=== PATIENT | male | born 1955 | race Caucasian/White ===

== ENCOUNTER → 2024-07-01 08:58 | Outpatient (REF) | payer MEDICARE, SELFPAY ==
[2024-07-01 11:05] LABS: Hematocrit 43.7 % (39.0-52.0); Hemoglobin 15.2 g/dL (13.0-18.0); Mean Corp Hgb Conc. 34.8 g/dL (33.0-37.0); Mean Corpuscular Hgb 29.5 pg (27.0-31.0); Mean Corpuscular Volume 84.9 fL (80.0-94.0); Mean Platelet Volume 11.2 fL (7.4-10.4); Platelet Count 174 10^3/uL (130-400); Red Blood Cell Count 5.15 10^6/uL (4.70-6.10); Red Cell Dist. Width 12.4 % (11.5-14.5); White Blood Cell Count 5.7 10^3/uL (4.8-10.8)
[2024-07-01 11:29] LABS: Blood Urea Nitrogen 15 mg/dl (9-20); Calcium 9.5 mg/dl (8.4-10.2); Carbon Dioxide 30 mmol/L (22-30); Chloride 100 mmol/L (98-107); Glucose 82 mg/dl (70-99); Potassium 3.7 mmol/L (3.5-5.1); Sodium 143 mmol/L (135-145); eGFR > 60.00
== END ==
LOC: SDSPAT 08:58
PROVIDERS: ATTENDING PHYSICIAN Surgery; FAMILY PHYSICIAN Family Medicine; OTHER PHYSICIAN Internal Medicine Cardiovascular Disease
DX: Z01.818 Encounter for other preprocedural examination (principal)
CPT/HCPCS: 36415; 80048; 85027; 93005

== ENCOUNTER → 2024-10-13 09:47 | Outpatient (REF) | payer MEDICARE, SELFPAY | LOC: HWRAD 09:47 | PROVIDERS: ATTENDING PHYSICIAN Internal Medicine Gastroenterology; FAMILY PHYSICIAN Family Medicine | DX: K82.4 Cholesterolosis of gallbladder (principal) | CPT/HCPCS: 76700 ==

== ENCOUNTER 2024-11-28 06:14 | Day surgery (SDC) | payer MEDICARE, SELFPAY | END 2024-11-28 09:31 | disposition home or self-care (01) | LOC: GI 06:14 | PROVIDERS: ATTENDING PHYSICIAN Internal Medicine Gastroenterology | DX: R12 Heartburn (principal); K44.9 Diaphragmatic hernia without obstruction or gangrene; K22.89 Other specified disease of esophagus; K31.7 Polyp of stomach and duodenum; K31.89 Other diseases of stomach and duodenum; Z13.810 Encounter for screening for upper gastrointestinal disorder | CPT/HCPCS: 43239; 88305; 88342 ==

== ENCOUNTER → 2025-01-08 09:01 | Outpatient (REF) | payer MEDICARE, SELFPAY ==
[2025-01-08 10:35] LABS: Hematocrit 44.7 % (39.0-52.0); Hemoglobin 15.4 g/dL (13.0-18.0); Mean Corp Hgb Conc. 34.5 g/dL (33.0-37.0); Mean Platelet Volume 12.3 fL (7.4-10.4); Platelet Count 160 10^3/uL (130-400); Red Blood Cell Count 5.14 10^6/uL (4.70-6.10); Red Cell Dist. Width 12.4 % (11.5-14.5); White Blood Cell Count 4.6 10^3/uL (4.8-10.8)
[2025-01-08 11:04] LABS: Blood Urea Nitrogen 12 mg/dl (9-20); Calcium 9.6 mg/dl (8.4-10.2); Carbon Dioxide 29 mmol/L (22-30); Chloride 104 mmol/L (98-107); Glucose 89 mg/dl (70-99); Sodium 141 mmol/L (135-145); eGFR > 60.00
== END ==
LOC: SDSPAT 09:01
PROVIDERS: ATTENDING PHYSICIAN Surgery; FAMILY PHYSICIAN Family Medicine
DX: Z01.818 Encounter for other preprocedural examination (principal)
CPT/HCPCS: 36415; 80048; 85027; 93005

== ENCOUNTER 2025-01-20 11:11 | Emergency (ER) | payer MEDICARE, SELFPAY ==
[2025-01-20 11:35] VITALS: BP 117/83
[2025-01-20 12:07] LABS: % Basophils 0.4 % (0-2); % Immature Granulocytes 0.2 % (0-0.5); % Lymphocytes 9.8 % (20.5-51.1); % Monocytes 8.4 % (1.7-9.3); % Neutrophils 81.2 % (42.2-75.2); Absolute Lymphocytes 0.5 10^3/uL (1.2-3.4); Absolute Monocytes 0.4 10^3/uL (0.1-0.6); Hematocrit 47.5 % (39.0-52.0); Hemoglobin 16.3 g/dL (13.0-18.0); Mean Corp Hgb Conc. 34.3 g/dL (33.0-37.0); Mean Corpuscular Hgb 30.1 pg (27.0-31.0); Mean Corpuscular Volume 87.8 fL (80.0-94.0); Mean Platelet Volume 11.3 fL (7.4-10.4); Nucleated Red Blood Cells % 0 % (-); Platelet Count 172 10^3/uL (130-400); Red Blood Cell Count 5.41 10^6/uL (4.70-6.10); Red Cell Dist. Width 12.5 % (11.5-14.5); White Blood Cell Count 4.9 10^3/uL (4.8-10.8)
[2025-01-20 12:21] LABS: ALT (SGPT) 20 U/L (0-50); AST (SGOT) 21 U/L (17-59); Albumin 4.6 g/dl (3.5-5.0); Alkaline Phosphatase 66 U/L (38-126); Blood Urea Nitrogen 13 mg/dl (9-20); Calcium 10.1 mg/dl (8.4-10.2); Carbon Dioxide 30 mmol/L (22-30); Chloride 103 mmol/L (98-107); Glucose 127 mg/dl (70-99); Lipase 59 U/L (23-300); Potassium 4.3 mmol/L (3.5-5.1); Sodium 139 mmol/L (135-145); Total Bilirubin 0.5 mg/dl (0.2-1.3); Total Protein 6.9 g/dl (6.3-8.2); eGFR > 60.00
[2025-01-20 13:40] VITALS: BP 117/85
[2025-01-20 13:41] VITALS: BMI 23.0
[2025-01-20 14:00] VITALS: BP 115/77
[2025-01-20 15:37] VITALS: BP 133/80
[2025-01-20 16:00] VITALS: BP 126/78
[2025-01-20] MEDS: ZOFRAN 4 MG IV (16:01)
[2025-01-20] MEDS: MORPHINE SULFATE 4 MG IV (16:05)
[2025-01-20 16:27] LABS: Urine Albumin Negative (Neg - Trace); Urine Bilirubin Negative (Negative); Urine Character Clear (Clear); Urine Color Yellow; Urine Glucose Negative (Negative); Urine Ketone Negative (Negative); Urine Leukocyte Negative (Negative); Urine Nitrite Negative (Negative); Urine Occult Blood Negative (Negative); Urine Urobilinogen Negative (Neg - 1+)
--- NOTE | 2025-01-20 17:49 | ED.GENMED ---
History of Present Illness
General
Chief Complaint: Abdominal Pain
Source: patient
Exam Limitations: none
Time Seen by Provider: 01/20/25 14:07
Nursing documentation reviewed up to this point in time: agreed with
History of Present Illness
History of Present Illness:
69-year-old male with past medical history of GERD, hyperlipidemia presenting to the emergency department today with concerns of lower abdominal pain starting 2 days ago with associated loose bowel movements. Some radiation to the back. Did start
a new medication for reflux a few weeks ago and has had some abdominal symptoms throughout that time period.
Past History
Past History
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
ED Past Surgical History: Other (Radical neck dissection)
Social History
Tobacco: Non-smoker
Review of Systems
Review of Systems
Allergies reviewed?: Yes
All Other Systems: ROS reviewed and negative except as documented in HPI and ROS
Phy Exam
Physical Exam
Physical Exam:
GENERAL: Alert , in no apparent distress
EYE: pupils equal and reactive
NECK: Supple, no significant adenopathy.
ENT: o/p clr, mmm.
CARDIAC: Regular rate and rhythm .
LUNGS: Clear breath sounds bilaterally, no acute respiratory distress, no wheezes/rales/rhonchi
ABDOMEN: Vague minimal discomfort throughout the lower abdomen otherwise soft, , no r/g, no cvat
NEUROLOGICAL: Alert and oriented, no focal neuro deficits
SKIN: Warm and dry, skin intact.
MUSCULOSKELETAL: No edema, well perfused.
PSYCH: Normal and appropriate interaction.
Course
Orders/Labs/Results
Orders:
Orders
01/20/25 11:49
Complete Blood Count/With Diff Urgent
Comprehensive Metabolic Panel Urgent
Lipase Urgent
01/20/25 15:39
Morphine Sulfate 4 mg IV NOW STA
01/20/25 15:57
Ondansetron Injectable [Zofran] 4 mg .ROUTE .STK-MED ONE
01/20/25 15:59
CT Abd/Pel (IV only)-DH only Urgent
Comment:
Reason For Exam: lower abd pain
01/20/25 16:01
Ondansetron Injectable [Zofran] 4 mg IV NOW STA
01/20/25 16:13
Urinalysis Reflex To Culture Urgent
Date Specimen was Collected: 01/20/25
Time Specimen was Collected: 16:12
Abnormal Lab Results
01/20/25
11:49
MPV 11.3 H fL
(7.4-10.4)
Absolute Lymphs (auto) 0.5 L 10^3/uL
(1.2-3.4)
Neutrophils % 81.2 H %
(42.2-75.2)
Lymphocytes % 9.8 L %
(20.5-51.1)
Glucose 127 H mg/dl
(70-99)
01/20/25 11:49
01/20/25 11:49
Vital Signs
Initial and Last Documented VS:
Initial Vital Signs
Temp Pulse Resp BP Pulse Ox
98.3 F 95 18 117/83 99
01/20/25 11:35 01/20/25 11:35 01/20/25 11:35 01/20/25 11:35 01/20/25 11:35
Last Documented Vital Signs
Temp Pulse Resp BP Pulse Ox
98.3 F 69 16 126/78 99
01/20/25 11:35 01/20/25 17:30 01/20/25 17:30 01/20/25 16:00 01/20/25 17:30
MDM/Problems Addressed
MDM/Problems Addressed:
69-year-old male presenting to the emergency department today with concerns of lower abdominal pain over the past 2 days described as intermittent achy with some diarrhea. On arrival vital signs normal patient no distress labs unremarkable CT scan
without emergent findings advised for close outpatient follow-up. Return precautions given.
*Critical Care Note
Total Time (30-74mins, 75-104mins- exclusive of procedures): Not Applicable
ED Attending Note
-
Portions of this chart may have been created with voice recognition software.� Occasional wrong word or��sound alike� substitutions may have occurred due to the inherent limitations of voice recognition software.
Discharge Plan
Departure
Patient Disposition: Home (Routine Discharge)
Date of Disposition: 01/20/25
Time of Disposition: 17:51
Patient with high blood pressure during this ER visit?: No
Condition: Good
Covid-19: Not Applicable
Discharge Problem:
Abdominal pain
Instructions: Abdominal Pain
Prescriptions:
New
ondansetron 4 mg tablet,disintegrating
4 mg PO Q6H PRN (Reason: nausea and vomiting) Qty: 7 0RF
No Action
cyanocobalamin (vitamin B-12) [Vitamin B-12] 1,000 mcg Tablet
1,000 mcg PO DAILY
lorazepam 1 mg Tablet
0.5 mg PO BID
oxycodone 5 mg Tablet
7.5 mg PO QPM
rosuvastatin [Crestor] 5 mg Tablet
5 mg PO QPM
cholecalciferol (vitamin D3) [Vitamin D3] 50 mcg (2,000 unit) Capsule
50 mcg PO DAILY
Gaviscon Extra Strength 254-237.5 mg/5 mL Suspension
10 ml PO QID PRN (Reason: gerd)
azelastine 137 mcg (0.1 %) [place],Non-Aerosol
1 spray INTRANASAL QPM
fluticasone propionate [Flonase] 50 mcg/actuation [place],Suspension
1 spray INTRANASAL BID
vonoprazan 20 mg Tablet
20 mg PO DAILY
Referrals:
Jj Maguire MD [Family Provider] -
Activity Restrictions/Additional Instructions:
You came to the emergency department today with concerns of lower abdominal pain. Here you had a reassuring assessment without emergent findings on CT scan you did have a somewhat enlarged prostate on the CT please follow-up for this. You also had
some joint inflammation at the sacroiliac joint. Please follow-up for this as well. Otherwise return for any worsening, new or concerning symptoms.
Interventions
Interventions:
*Risk Screen - Suicide Last Done: 01/20/25 11:35
*General Assessment Last Done: 01/20/25 11:35
*Neglect/Abuse Screening Last Done: 01/20/25 11:35
*ED- Fall Risk Assessment Last Done: 01/20/25 13:42
*ED COVID-19 Vaccine History Last Done: 01/20/25 13:42
*Nursing Disposition Last Done: 01/20/25 18:12
EH-Pgpqfw-Hkndslbbgo Assessment Last Done: 01/20/25 13:45
Discharge Date and Time
Discharge Date/Time: 01/20/25 18:15
Print Language: OCCITAN
== END 2025-01-20 18:15 | disposition home or self-care (01) ==
LOC: EMR 11:11
PROVIDERS: Emergency Medicine; Physician Assistant; EMERGENCY PHYSICIAN Student in an Organized Health Care Education/Training Program; FAMILY PHYSICIAN Family Medicine
DX: R10.30 Lower abdominal pain, unspecified (principal); E78.5 Hyperlipidemia, unspecified; K21.9 Gastro-esophageal reflux disease without esophagitis
CPT/HCPCS: 99285; 96374; 96375; 74177; 80053; 81003; 83690; 85025; Q9967

== ENCOUNTER 2025-01-25 15:14 | Emergency (ER) | payer MEDICARE, SELFPAY ==
[2025-01-25 15:22] VITALS: BP 111/80
[2025-01-25 15:46] LABS: % Basophils 0.8 % (0-2); % Eosinophils 0.3 % (0-6); % Immature Granulocytes 0.3 % (0-0.5); % Lymphocytes 15.4 % (20.5-51.1); % Monocytes 8.9 % (1.7-9.3); % Neutrophils 74.3 % (42.2-75.2); Absolute Lymphocytes 0.6 10^3/uL (1.2-3.4); Absolute Monocytes 0.3 10^3/uL (0.1-0.6); Absolute Neutrophils 2.9 10^3/uL (1.4-6.5); Hemoglobin 15.8 g/dL (13.0-18.0); Mean Corp Hgb Conc. 34.3 g/dL (33.0-37.0); Mean Corpuscular Hgb 30.3 pg (27.0-31.0); Mean Corpuscular Volume 88.1 fL (80.0-94.0); Mean Platelet Volume 11.5 fL (7.4-10.4); Nucleated Red Blood Cells % 0 % (-); Platelet Count 183 10^3/uL (130-400); Red Blood Cell Count 5.22 10^6/uL (4.70-6.10); Red Cell Dist. Width 12.5 % (11.5-14.5); White Blood Cell Count 3.8 10^3/uL (4.8-10.8)
[2025-01-25 15:57] LABS: ALT (SGPT) 20 U/L (0-50); AST (SGOT) 21 U/L (17-59); Albumin 4.7 g/dl (3.5-5.0); Alkaline Phosphatase 66 U/L (38-126); Blood Urea Nitrogen 13 mg/dl (9-20); Carbon Dioxide 31 mmol/L (22-30); Chloride 103 mmol/L (98-107); Glucose 97 mg/dl (70-99); Lipase 69 U/L (23-300); Potassium 4.5 mmol/L (3.5-5.1); Sodium 138 mmol/L (135-145); Total Bilirubin 0.6 mg/dl (0.2-1.3); Total Protein 7.1 g/dl (6.3-8.2); eGFR > 60.00
--- NOTE | 2025-01-25 16:48 | ED.GENMED ---
History of Present Illness
General
Chief Complaint: Abdominal Pain
Source: patient
Exam Limitations: none
Time Seen by Provider: 01/25/25 16:36
Nursing documentation reviewed up to this point in time: agreed with
History of Present Illness
History of Present Illness:
69-year-old male with history of GERD, chronic abdominal pain right neck dissection for cancer, small area of tongue dissected, presents for abdominal pain. He states he is has mid to left upper abdominal pain feeling like 'massive heartburn,'
comes and goes for the past 3 days but today was constant 9/10 sitting still earlier. He states the pain is still there. He points to the mid epigastric area.
He was here 5 days ago with lower abdominal pain and some diarrhea, had unremarkable CAT scan and labs. Instructed to stop the Vonoprazan
He states he had a gastric ulcer when he was 11 years old and this feels the same.
He states he has been on 'every kind' of antacid. Lately he has been taking Gaviscon and Maalox with no relief. He was started on Vonoprazan 20 mg daily about a month ago
Patient states with his chronic abdominal pain he is followed by Dr. Stewart and had an endoscopy in November showing a 4 cm hiatal hernia and he has a follow-up appointment with her on February 02.
Past History
Past History
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
ED Past Surgical History: Other (Radical neck dissection)
Social History
Tobacco: Non-smoker
Personal: Single
Living: with family
Review of Systems
Review of Systems
Allergies reviewed?: Yes
All Other Systems: ROS reviewed and negative except as documented in HPI and ROS
Constitutional: Denies fever
Respiratory: Denies trouble breathing
Cardiac: Denies chest pain
ABD/GI: Reports abdominal pain; Denies nausea, vomiting, diarrhea, bloody stools, black stools or anorexia
: Denies dysuria, frequency or difficulty voiding
Musculoskeletal: Reports no symptoms
Skin: Reports no symptoms
Neurological: Reports no symptoms
Phy Exam
Physical Exam
Physical Exam:
GENERAL: No acute distress. A&Ox3.
CONSTITUTIONAL: Afebrile.
RESPIRATORY: Regular respirations, nonlabored, lungs clear.
CARDIOVASCULAR: Regular rate and rhythm, no murmurs, no rubs.
GI: Soft, tender to palpate mid to left upper abdomen, normal BS
MUSCULOSKELETAL: Moves with ease. Well perfused.
SKIN: Warm, dry, pink
PSYCH: Normal mood and affect. Well kept, interactive and appropriate
NEUROLOGIC: Awake, alert and oriented. No focal neurological deficits
Course
Orders/Labs/Results
Orders:
Orders
01/25/25 15:16
EKG [Electrocardiogram (*1)] Urgent
Reason for Study: Chest Pain
EKG- Treatment ONCE
01/25/25 15:35
Complete Blood Count/With Diff Urgent
Comprehensive Metabolic Panel Urgent
Lipase Urgent
01/25/25 17:32
US Abdomen Complete/Upper Urgent
Comment:
Reason For Exam: mid to left upper quadrant pain
01/25/25 19:08
Sucralfate [Carafate] 1 gram PO NOW STA
Abnormal Lab Results
01/25/25
15:35
WBC 3.8 L 10^3/uL
(4.8-10.8)
MPV 11.5 H fL
(7.4-10.4)
Absolute Lymphs (auto) 0.6 L 10^3/uL
(1.2-3.4)
Lymphocytes % 15.4 L %
(20.5-51.1)
Carbon Dioxide 31 H mmol/L
(22-30)
01/25/25 15:35
01/25/25 15:35
Vital Signs
Initial and Last Documented VS:
Initial Vital Signs
Temp Pulse BP Pulse Ox
98.1 F 84 111/80 100
01/25/25 15:22 01/25/25 15:22 01/25/25 15:22 01/25/25 15:22
Last Documented Vital Signs
Temp Pulse BP Pulse Ox
98.1 F 84 111/80 100
01/25/25 15:22 01/25/25 15:22 01/25/25 15:22 01/25/25 15:22
MDM/Problems Addressed
Differential Diagnosis Includes:
GERD, hiatal hernia, PUD
MDM/Problems Addressed:
69-year-old male with history of GERD, chronic abdominal pain right neck dissection for cancer, small area of tongue dissected, presents for abdominal pain. He states he is has mid to left upper abdominal pain feeling like 'massive heartburn,'
comes and goes for the past 3 days but today was constant 9/10 sitting still earlier. He states the pain is still there. He points to the mid epigastric area.
He was here 5 days ago with lower abdominal pain and some diarrhea, had unremarkable CAT scan and labs. Instructed to stop the Vonoprazan
He states he had a gastric ulcer when he was 11 years old and this feels the same. Denies dark stools.
He states he has been on 'every kind' of antacid. Lately he has been taking Gaviscon and Maalox with no relief. He was started on Vonoprazan 20 mg daily about a month ago
Patient states with his chronic abdominal pain he is followed by Dr. Stewart and had an endoscopy in November showing a 4 cm hiatal hernia and he has a follow-up appointment with her on February 02.
Afebrile, NAD
EKG NSR
CBC with no clinically significant abnormality
CMP: Normal
Lipase normal
7:15 p.m.
US radiology report reviewed, no acute finding.
Copy given to pt
Plan: Carafate, f/u with GI as scheduled.
*EKG
EKG Intrepretation Date: 01/25/25
Interpretation: normal
Heart Rate: 71
Rate: normal
Rhythm: sinus
[place]: normal axis
Interval: normal interval
QRS Pattern: normal QRS
Ischemia: no ischemia
*Critical Care Note
Total Time (30-74mins, 75-104mins- exclusive of procedures): Not Applicable
ED Attending Note
-
Portions of this chart may have been created with voice recognition software.� Occasional wrong word or��sound alike� substitutions may have occurred due to the inherent limitations of voice recognition software.
Discharge Plan
Departure
Patient Disposition: Home (Routine Discharge)
Date of Disposition: 01/25/25
Time of Disposition: 19:08
Patient with high blood pressure during this ER visit?: No
Condition: Fair
Discharge Problem:
Abdominal pain, epigastric
Instructions: Acid Reflux and GERD in Adults (DC), Abdominal Pain
Prescriptions:
New
sucralfate [Carafate] 1 gram tablet
1 g PO ACHS Qty: 30 0RF
ondansetron 4 mg tablet,disintegrating
4 mg PO Q8H PRN (Reason: nausea and vomiting) 4 Days Qty: 12 0RF
No Action
cyanocobalamin (vitamin B-12) [Vitamin B-12] 1,000 mcg Tablet
1,000 mcg PO DAILY
lorazepam 1 mg Tablet
0.5 mg PO BID
oxycodone 5 mg Tablet
7.5 mg PO QPM
rosuvastatin [Crestor] 5 mg Tablet
5 mg PO QPM
cholecalciferol (vitamin D3) [Vitamin D3] 50 mcg (2,000 unit) Capsule
50 mcg PO DAILY
Gaviscon Extra Strength 254-237.5 mg/5 mL Suspension
10 ml PO QID PRN (Reason: gerd)
azelastine 137 mcg (0.1 %) [place],Non-Aerosol
1 spray INTRANASAL QPM
fluticasone propionate [Flonase] 50 mcg/actuation [place],Suspension
1 spray INTRANASAL BID
vonoprazan 20 mg Tablet
20 mg PO DAILY
ondansetron 4 mg tablet,disintegrating
4 mg PO Q6H PRN (Reason: nausea and vomiting) Qty: 7 0RF
Referrals:
Bella Hobson MD [Active] - Keep scheduled appt
Jj Maguire MD [Family Provider] -
Activity Restrictions/Additional Instructions:
As we discussed, nothing worrisome in workup here today, your ultrasound shows nothing worrisome.
Try the Carafate and when you see Do let her know if it works
Interventions
Interventions:
*Risk Screen - Suicide Last Done: 01/25/25 15:26
*General Assessment Last Done: 01/25/25 17:07
*Neglect/Abuse Screening Last Done: 01/25/25 16:41
*ED- Fall Risk Assessment Last Done: 01/25/25 17:07
*ED COVID-19 Vaccine History Last Done: 01/25/25 17:07
*Nursing Disposition Last Done: 01/25/25 19:16
HB-Pqymxf-Lhbuwasaye Assessment Last Done: 01/25/25 17:07
Discharge Date and Time
Discharge Date/Time: 01/25/25 19:17
Print Language: MALTESE
[2025-01-25 17:07] VITALS: BMI 22.3
[2025-01-25] MEDS: CARAFATE 1 GRAM PO (19:14)
== END 2025-01-25 19:17 | disposition home or self-care (01) ==
LOC: EMR 15:14
PROVIDERS: EMERGENCY PHYSICIAN Emergency Medicine; FAMILY PHYSICIAN Family Medicine
DX: R10.13 Epigastric pain (principal); G89.29 Other chronic pain; Z85.810 Personal history of malignant neoplasm of tongue; Z92.3 Personal history of irradiation
CPT/HCPCS: 99284; 76700; 80053; 83690; 85025; 93005

== ENCOUNTER → 2025-02-05 14:19 | Outpatient (REF) | payer MEDICARE, SELFPAY | LOC: RAD 14:19 | PROVIDERS: ATTENDING PHYSICIAN Internal Medicine Gastroenterology; FAMILY PHYSICIAN Family Medicine | DX: K59.03 Drug induced constipation (principal) | CPT/HCPCS: 74019 ==

== ENCOUNTER → 2025-02-20 11:06 | Outpatient (REF) | payer MEDICARE, SELFPAY | LOC: HWRAD 11:06 | PROVIDERS: ATTENDING PHYSICIAN Physician Assistant; FAMILY PHYSICIAN Family Medicine | DX: R10.9 Unspecified abdominal pain (principal) | CPT/HCPCS: 74018 ==

== ENCOUNTER 2025-06-17 06:11 | Day surgery (SDC) | payer MEDICARE, SELFPAY ==
[2025-06-17] VITALS (13 sets, daily range): BP systolic 103–131; BP diastolic 60–84; BMI 21.5
[2025-06-17] MEDS: NORMOSOL-R/PLASMALYTE-A 1000 IV (07:20)
[2025-06-17] MEDS: ZOFRAN 4 MG IV (09:59)
[2025-06-17] MEDS: DILAUDID 0.25 MG IV ×3 (09:59→10:28)
== END 2025-06-17 13:15 | disposition home or self-care (01) ==
LOC: SDS 06:11
PROVIDERS: ATTENDING PHYSICIAN Surgery
DX: K40.20 Bilateral inguinal hernia, without obstruction or gangrene, not specified as recurrent (principal)
CPT/HCPCS: 49650; C1781

== ENCOUNTER 2025-08-06 06:21 | Day surgery (SDC) | payer MEDICARE, SELFPAY | END 2025-08-06 12:55 | disposition home or self-care (01) | LOC: GI 06:21 | PROVIDERS: ATTENDING PHYSICIAN Internal Medicine Gastroenterology | DX: Z12.11 Encounter for screening for malignant neoplasm of colon (principal); R19.4 Change in bowel habit; K64.8 Other hemorrhoids; K57.30 Diverticulosis of large intestine without perforation or abscess without bleeding; K62.89 Other specified diseases of anus and rectum; K63.5 Polyp of colon | CPT/HCPCS: 45380; 88305 ==